=== PATIENT | female | born 1960 | race Asian ===

== ENCOUNTER 2016-11-04 14:15 | Outpatient (CLI) | payer OTHER | END 2016-11-04 14:16 | disposition home or self-care (01) | DX: M85.89 Other specified disorders of bone density and structure, multiple sites (principal); Z78.0 Asymptomatic menopausal state ==

== ENCOUNTER 2017-12-14 14:53 | Outpatient (CLI) | payer OTHER ==
--- NOTE | 2017-12-15 13:13 | Ultrasound Report ---
PELVIC ULTRASOUND: 12/14/2017 CLINICAL INDICATION: Pain. TECHNIQUE: Transabdominal pelvic ultrasound performed for global evaluation. Transvaginal pelvic ultrasound performed for detailed evaluation. Real-time scanning performed and static images obtained. FINDINGS: The uterus is anteverted, measuring 5.5 x 4.3 x 3.3 cm. The endometrium appears thickened for a postmenopausal patient, measuring 1.5 cm on transvaginal scanning, and fluid is noted in the endometrial canal. No focal myometrial lesion is appreciated. The ovaries are unremarkable, with the right measuring 2.0 x 1.2 x 1.1 cm, and the left measuring 2.1 x 1.8 x 1.1 cm. No free fluid is present. IMPRESSION: THICKENED ENDOMETRIUM FOR A POSTMENOPAUSAL PATIENT, WITH A SMALL AMOUNT OF FLUID IN THE ENDOMETRIAL CANAL. CORRELATION WITH POSTMENOPAUSAL BLEEDING IS RECOMMENDED, AND CONSIDER ENDOMETRIAL BIOPSY. TD: 12/15/2017 13:12
== END 2017-12-14 14:54 | disposition home or self-care (01) ==
LOC: DI 14:53
PROVIDERS: ATTEND Physician Assistant Medical
DX: R93.8 Abnormal findings on diagnostic imaging of other specified body structures (principal)
CPT/HCPCS: 76830; 76856

== ENCOUNTER 2017-12-14 14:54 | Outpatient (CLI) | payer OTHER ==
--- NOTE | 2017-12-15 17:57 | Mammography Report ---
DIGITAL SCREENING MAMMOGRAM: 12/14/2017 CLINICAL INDICATION: A 57-year-old with family history of breast cancer, history of benign left breast biopsy for screening. COMPARISON: 05/2016, 02/2016, 08/2015, 01/2015, 12/2014, 11/2013, 07/2012, 04/2011, 02/2010. FINDINGS: The breasts again demonstrate heterogeneously dense fibroglandular parenchyma bilaterally. Coarse and punctate, typically benign calcifications are present. Biopsy marker in the left upper central breast is stable. No suspicious masses, clustered microcalcifications, or regions of architectural distortion are identified. IMPRESSION: BENIGN FINDINGS. RECOMMENDATION: ROUTINE ANNUAL SCREENING UNLESS OTHERWISE CLINICALLY INDICATED. BIRADS category 2, benign findings. STANDARD QUALIFYING STATEMENTS 1. This examination was reviewed with the aid of Computed-Aided Detection (CAD). 2. A negative or benign imaging report should not delay biopsy if clinically suspicious findings are present. Consider surgical consultation if warranted. More than 5% of cancers are not identified by imaging. 3. Dense breasts may obscure an underlying neoplasm. TD: 12/15/2017 17:57
== END 2017-12-14 14:55 | disposition home or self-care (01) ==
LOC: DI 14:54
PROVIDERS: ATTEND Physician Assistant Medical
DX: Z12.31 Encounter for screening mammogram for malignant neoplasm of breast (principal); Z80.3 Family history of malignant neoplasm of breast
CPT/HCPCS: 77067

== ENCOUNTER 2018-03-10 08:29 | Outpatient (CLI) | payer OTHER ==
--- NOTE | 2018-03-10 12:54 | Ultrasound Report ---
PELVIC ULTRASOUND: 03/10/2018 CLINICAL INDICATION: Followup endometrial hyperplasia. COMPARISON: 12/14/2017. TECHNIQUE: Transabdominal pelvic ultrasound performed for global evaluation. Transvaginal pelvic ultrasound performed for detailed evaluation. Real-time scanning performed and static images obtained. FINDINGS: The uterus is anteverted, measuring 6.0 x 4.0 x 2.9 cm. The endometrium now measures 4 mm. A 2.2 x 2.1 x 1.8 cm posterior submucosal leiomyoma is now seen. The ovaries appear unremarkable, with the right measuring 2.0 x 1.7 x 1.0 cm and the left measuring 2.3 x 1.6 x 1.1 cm. No free fluid is present. IMPRESSION: 2.2 CM POSTERIOR SUBMUCOSAL LEIOMYOMA. RESOLUTION OF PREVIOUSLY SEEN ENDOMETRIAL PROMINENCE. TD: 03/10/2018 12:43
== END 2018-03-10 08:30 | disposition home or self-care (01) ==
LOC: DI 08:29
PROVIDERS: ATTEND Registered Nurse
DX: N85.00 Endometrial hyperplasia, unspecified (principal); D25.0 Submucous leiomyoma of uterus
CPT/HCPCS: 76830; 76856

== ENCOUNTER 2019-01-04 08:07 | Outpatient (CLI) | payer OTHER ==
[2019-01-04 12:43] LABS: ALBUMIN 4.1 g/dL (3.2-5.5); ALBUMIN/GLOBULIN RATIO 1.4 (1.0-2.2); ALKALINE PHOSPHATASE 69 IU/L (42-121); ALT ALANINE AMINOTRANSFERASE 18 IU/L (10-60); AST ASPARTATE AMINOTRANSFERASE 21 IU/L (10-42); BILIRUBIN,TOTAL 1.2 mg/dL (0.2-1.0); BUN - BLOOD UREA NITROGEN 18 mg/dL (6-20); CALCIUM 9.2 mg/dL (8.5-10.3); CARBON DIOXIDE - CO2 27 mmol/L (21-32); CHLORIDE 103 mmol/L (101-111); CHOL/HDL RATIO 2.4 (<4.4); CHOLESTEROL 204 mg/dL; CREATININE 0.6 mg/dL (0.4-1.0); GFR - MDRD 102 (>89); GLUCOSE 115 mg/dL (70-100); HDL CHOLESTEROL 84 mg/dL; LDL CHOLESTEROL,CALCULATED 105 mg/dL; LDL/HDL RATIO 1.3 (<4.4); SODIUM 137 mmol/L (135-145); TOTAL PROTEIN 7.1 g/dL (6.7-8.2); VLDL CHOLESTEROL 15 mg/dL
[2019-01-04 12:49] LABS: BASOPHILS % (AUTO) 0.9 %; EOSINOPHILS # (AUTO) 0.1 10^3/uL (0.0-0.7); EOSINOPHILS % (AUTO) 2.4 %; HGB - HEMOGLOBIN 13.5 g/dL (12.0-16.0); LYMPHOCYTES # (AUTO) 1.5 10^3/uL (1.5-3.5); LYMPHOCYTES % (AUTO) 34.7 %; MEAN CORPUSCULAR HEMOGLOBIN 29.5 pg (27.0-31.0); MEAN CORPUSCULAR HGB CONC 33.6 g/dL (32.0-36.0); MEAN CORPUSCULAR VOLUME 87.8 fL (81.0-99.0); MEAN PLATELET VOLUME 7.5 fL (7.9-10.8); MONOCYTES # (AUTO) 0.4 10^3/uL (0.0-1.0); MONOCYTES % (AUTO) 10.3 %; NEUTROPHILS # (AUTO) 2.3 10^3/uL (1.5-6.6); NEUTROPHILS % (AUTO) 51.7 %; PLT - PLATELET COUNT 266 10^3/uL (130-450); RED BLOOD COUNT 4.59 10^6/uL (4.20-5.40); RED CELL DISTRIBUTION WIDTH 13.5 % (12.0-15.0); WHITE BLOOD COUNT 4.4 x10^3/uL (4.8-10.8)
== END 2019-01-04 23:59 | disposition home or self-care (01) ==
LOC: LAB.WCP 08:07
PROVIDERS: ATTEND Physician Assistant Medical
DX: Z00.00 Encounter for general adult medical examination without abnormal findings (principal); R73.9 Hyperglycemia, unspecified; E78.5 Hyperlipidemia, unspecified; M81.0 Age-related osteoporosis without current pathological fracture
CPT/HCPCS: 36415; 80053; 80061; 83721; 84443; 85025

== ENCOUNTER 2019-01-19 16:41 | Outpatient (CLI) | payer OTHER ==
--- NOTE | 2019-01-20 09:11 | Mammography Report ---
Reason: Annual Screening Procedure Date: 01/19/2019 Accession Number: [id number] / [id number] Procedure: HORTENCIA - Screening Mammo w/Timur CPT Code: FULL RESULT: EXAM: Screening Mammo w/Timur DATE: 01/19/2019 5:22 PM CLINICAL HISTORY: Routine screening. No reported personal history of breast cancer. Family history breast cancer mother at age 70. TECHNIQUE: (B) - Bilateral Bilateral CC and MLO views were obtained. COMPARISON: 12/14/2017 through 01/15/2015 PARENCHYMAL PATTERN: (D) - The breasts demonstrate heterogeneously dense fibroglandular parenchyma bilaterally. FINDINGS: Bilateral breasts: There are no suspicious masses, calcifications, or areas of distortion. Stable biopsy marker in the 12:00 left breast. IMPRESSION: Benign findings. BI-RADS category 2 RECOMMENDATION: (ANNUAL) - Recommend routine annual screening mammography. BI-RADS CATEGORY: (2) - Benign Findings STANDARD QUALIFYING STATEMENTS: 1. This examination was not reviewed with the aid of Computer-Aided Detection (CAD). 2. A negative or benign imaging report should not preclude biopsy if clinically suspicious findings are present. 3. Dense breasts may obscure an underlying neoplasm. 4. This examination was reviewed with the aid of 3D breast imaging (tomosynthesis).
== END 2019-01-19 16:42 | disposition home or self-care (01) ==
LOC: DI 16:41
DX: Z12.31 Encounter for screening mammogram for malignant neoplasm of breast (principal); Z80.3 Family history of malignant neoplasm of breast
CPT/HCPCS: 77063; 77067

== ENCOUNTER 2019-02-22 09:00 | Outpatient (CLI) | payer OTHER ==
--- NOTE | 2019-02-23 08:37 | DEXA Report ---
Reason: OSTEOPOROSIS Procedure Date: 02/22/2019 Accession Number: [id number] / [id number] Procedure: DEX - Dexa Spine and/or Hip CPT Code: FULL RESULT: EXAM: Dexa Spine and/or Hip DATE: 02/22/2019 9:18 AM CLINICAL HISTORY: OSTEOPOROSIS TECHNIQUE: Dual energy x-ray absorptiometry (DXA) was performed on a [employer] System. Regions measured are the AP Spine, femoral neck, and if needed forearm. COMPARISON: 11/04/2016. In accordance with the International Society for Clinical Densitometry (ISCD) guidelines, data from previous exams may be reanalyzed using current recommendations and techniques. This is done to allow a more accurate basis for comparison with the current study. FINDINGS: The data for the lumbar spine is as follows: BMD (g/cm/cm) T-SCORE Z-SCORE REGION L1 0.909 -1.8 -0.4 L2 0.943 -2.1 -0.7 L3 1.103 -0.8 0.6 L4 1.130 -0.6 0.9 TOTAL 1.039 -1.2 0.3 NOTE: All evaluable vertebrae are used for classification The data for the hip is as follows: BMD (g/cm/cm) T-SCORE Z-SCORE REGION Neck 0.717 -2.3 -0.9 TOTAL 0.850 -1.2 -0.2 NOTE: The femoral neck or total proximal femur, whichever is lowest, is used for classification. DXA RESULTS SUMMARY: Spine SCAN DATE [age]GE BMD CHANGE VS CHANGE VS PREVIOUS PREVIOUS % 1/22/2019 [age] 1.039 0.074* 7.7* 11/04/2016 56.2 0[age]965 * Denotes significant change at the 95% confidence level. Denotes dissimilar scan types or analysis methods. DXA RESULTS SUMMARY: Hip SCAN DATE AGE BMD CHANGE VS CHANGE VS PREVIOUS PREVIOUS % 02[age]22/2019 60.5 0.850 -0.004 -0.5 11/04/2016 56.2 0.854 * Denotes significant change at the 95% confidence level. Denotes dissimilar scan types or analysis methods. IMPRESSION: THE WHO CLASSIFICATION BASED ON THE INTERNATIONAL REFERENCE STANDARD IS OSTEOPENIA. THE FRACTURE RISK IS INCREASED. RECOMMENDATION: Patients with diagnosis of osteoporosis or osteopenia should have regular bone mineral density assessment. For those eligible for Medicare, routine testing is allowed once every 2 years. Testing frequency can be increased for patients who have rapidly progressing disease or for those who are receiving medical therapy to restore bone mass. COMMENT: World Health Organization (WHO) definitions for osteoporosis and osteopenia: NORMAL BMD: T-score at -1.0 or higher, fracture risk is low OSTEOPENIA BMD: T-score between -1.0 and -2.5, fracture risk is increased. OSTEOPOROSIS BMD: T-score at -2.5 or lower, fracture risk is high. National Osteoporosis Foundation recommends: 1. Obtain adequate dietary calcium (at least 1200 mg per day) and vitamin D (400-800 international units per day). 2. Participate, as appropriate, in regular weightbearing and muscle-strengthening exercise. 3. Avoid tobacco use and reduce alcohol and caffeine intake. 4. For more detailed information see the website at www.NOF.org.
== END 2019-02-22 09:01 | disposition home or self-care (01) ==
LOC: DI 09:00
PROVIDERS: ATTEND Physician Assistant Medical
DX: M85.89 Other specified disorders of bone density and structure, multiple sites (principal)
CPT/HCPCS: 77080

== ENCOUNTER 2020-04-23 15:05 | Outpatient (CLI) | payer OTHER ==
--- NOTE | 2020-04-26 08:54 | Mammography Report ---
BILATERAL DIGITAL SCREENING MAMMOGRAM 3D/2D: 04/23/2020 CLINICAL: Routine screening. Comparison is made to exams dated: 01/19/2019 mammogram and 12/14/2017 mammogram - [facility]. The tissue of both breasts is heterogeneously dense. This may lower the sensitivity of tali mography. There are benign calcifications in the right breast. There also is a biopsy clip in the left breast. No significant masses, calcifications, or other findings are seen in either breast. There has been no significant interval change. IMPRESSION: There is no mammographic evidence of malignancy. A 1 year screening mammogram is recommended. This exam was interpreted at Station ID: [id number]. NOTE: For mammograms, a report in lay terms will be sent to the patient. Approximately 15% of breast malignancies will not be visualized mammographically. In the management of a palpable breast mass, a negative mammogram must not discourage biopsy of a clinically suspicious lesion. Electronically Signed By: Jose Roberto Rocha M.D. aty/luly:04/25/2020 09:49:30 ACR BI-RADS Category 2: Benign Finding(s) 3342F PARENCHYMAL PATTERN: (D) - The breast(s) demonstrate(s) heterogeneously dense fibroglandular parenchy ma. BI-RADS CATEGORY: (2) - 2 RECOMMENDATION: (ANNUAL) - Recommend routine annual screening mammography. [id number] 1 year screening LATERALITY: (B)
== END 2020-04-23 15:06 | disposition home or self-care (01) ==
LOC: DI 15:05
DX: Z12.31 Encounter for screening mammogram for malignant neoplasm of breast (principal)
CPT/HCPCS: 77063; 77067

== ENCOUNTER 2021-05-22 12:32 | Outpatient (CLI) | payer OTHER ==
--- NOTE | 2021-05-22 16:21 | DEXA Report ---
PROCEDURE: Dexa Spine and/or Hip INDICATIONS: POST MENOPAUSAL TECHNIQUE: Dual energy x-ray absorptiometry (DXA) was performed on a [employer] System. Regions measur ed are the AP Spine, femoral neck, and if needed forearm. COMPARISON: 02/22/2019 and 11/04/2016. FINDINGS: Lumbar Spine: Bone Mineral Density 1.089 g/cm/cm,T score -0.9, normal Left Hip: Bone Mineral Density 0.848 g/cm/cm,T score -1.3, osteopenia Left Femoral Neck: Bone Mineral Density 0.77 g/cm/cm, T score -1.8, osteopenia (T score greater or equal to -1.0: NORMAL) (T score from -1.1 to -2.4: OSTEOPENIA) (T score less than or equal to -2.5 to: OSTEOPOROSIS) Impression: Osteopenia. Bone mineral density is unchanged compared to prior examination obtained 2018. Patients with diagnosis of osteoporosis or osteopenia should have regular bone mineral density assess ment. For those eligible for Medicare, routine testing is allowed once every 2 years. Testing frequ ency can be increased for patients who have rapidly progressing disease or for those who are receivin g medical therapy to restore bone mass. Reviewed by: Omayra Cox MD, PhD on 05/22/2021 4:20 PM PDT Approved by: Omayra Cox MD, PhD on 05/22/2021 4:20 PM PDT Station ID: [id number]
== END 2021-05-22 12:33 | disposition home or self-care (01) ==
LOC: DI 12:32
PROVIDERS: ATTEND Physician Assistant Medical
DX: Z78.0 Asymptomatic menopausal state (principal); M85.89 Other specified disorders of bone density and structure, multiple sites

== ENCOUNTER 2021-05-22 12:35 | Outpatient (CLI) | payer OTHER ==
--- NOTE | 2021-05-23 12:50 | Mammography Report ---
BILATERAL DIGITAL SCREENING MAMMOGRAM 3D/2D: 05/22/2021 CLINICAL: Routine screening. Comparison is made to exams dated: 04/23/2020 mammogram, 01/19/2019 mammogram, 12/14/2017 mammogram, 06/13 ultrasound, 06/10/2016 mammogram, and 03/13/2016 mammogram - [facility]. The t issue of both breasts is extremely dense, which lowers the sensitivity of mammography. There is a biopsy site marker on the left breast. There are benign grouped calcifications in the rig ht breast that are not significantly changed. There is a possible 0.6 cm oval asymmetry in the left breast middle depth inferior region seen on the mediolateral oblique view only. This is more prominent. No other significant masses, calcifications, or other findings are seen in either breast. IMPRESSION: INCOMPLETE: NEEDS ADDITIONAL IMAGING EVALUATION The possible 0.6 cm oval asymmetry in the left breast is indeterminate. Additional views with possib le ultrasound are recommended. This exam was interpreted at Station ID: [id number]. NOTE: For mammograms, a report in lay terms will be sent to the patient. Approximately 15% of breast malignancies will not be visualized mammographically. In the management of a palpable breast mass, a negative mammogram must not discourage biopsy of a clinically suspicious lesion. Electronically Signed By: Jose Roberto Rocha M.D. aty/:05/22/2021 17:10:03 ACR BI-RADS Category 0: Incomplete 3340F PARENCHYMAL PATTERN: (VD) - The breast(s) demonstrate(s) extremely dense parenchyma, limiting the sen sitivity of mammography. BI-RADS CATEGORY: (0) - 0 Mammo and [place] [id number] Immediate follow-up LATERALITY: (L)
== END 2021-05-22 12:36 | disposition home or self-care (01) ==
LOC: DI 12:35
DX: Z12.31 Encounter for screening mammogram for malignant neoplasm of breast (principal); N64.89 Other specified disorders of breast

== ENCOUNTER 2021-06-06 10:47 | Outpatient (CLI) | payer OTHER ==
--- NOTE | 2021-06-07 13:12 | Mammography Report ---
UNILATERAL LEFT DIGITAL DIAGNOSTIC MAMMOGRAM 3D/2D: 06/06/2021 CLINICAL: Patient returns today to evaluate an asymmetry in the left breast. Comparison is made to exams dated: 05/22/2021 mammogram, 04/23/2020 mammogram, 01/19/2019 mammogram, 2017 mammogram, 06/13/2016 ultrasound, and 06/10/2016 mammogram - . The ti ssue of left breast is extremely dense, which lowers the sensitivity of mammography. The oval equal density asymmetry with indistinct and circumscribed margins in the left breast middle depth inferior region seen on the mediolateral oblique view only is not seen on additional views. No other significant masses or calcifications are seen in the breast. IMPRESSION: INCOMPLETE: NEEDS ADDITIONAL IMAGING EVALUATION The oval equal density asymmetry in the left breast is not visualized on additional views. An ultraso und is recommended for confirmation. Ultrasound will be performed immediately following the current exam. This exam was interpreted at Station ID: [id number]. NOTE: For mammograms, a report in lay terms will be sent to the patient. Approximately 15% of breast malignancies will not be visualized mammographically. In the management of a palpable breast mass, a negative mammogram must not discourage biopsy of a clinically suspicious lesion. Electronically Signed By: Vasquez Joe M.D. ddp/:06/06/2021 11:46:59 ACR BI-RADS Category 0: Incomplete 3340F PARENCHYMAL PATTERN: (VD) - The breast(s) demonstrate(s) extremely dense parenchyma, limiting the sen sitivity of mammography. BI-RADS CATEGORY: (0) - 0 Ultrasound [id number] Immediate follow-up LATERALITY: (B)
--- NOTE | 2021-06-07 13:12 | Ultrasound Report ---
LIMITED ULTRASOUND OF LEFT BREAST: 06/06/2021 CLINICAL: Patient returns today to evaluate a focal asymmetry in the left breast. Comparison is made to exams dated: 06/06/2021 mammogram, 05/22/2021 mammogram, 04/23/2020 mammogram, 2018 mammogram, 12/14/2017 mammogram, and 06/13/2016 ultrasound - [facility]. Real-time ultrasound of the left breast 8-9 o'clock region was performed on the areas of interest. Ramirez scale images of the real-time examination were reviewed. No discrete cystic or solid mass lesion identified in the area of mammographic abnormality. IMPRESSION: NEGATIVE There is no sonographic evidence of malignancy. There are no abnormalities seen in the left breast to correspond with the mammography finding at 8 or 9 o'clock or central to the nipple. Mammographic findings likely represented superimposition of miguelito ast tissue. A 1 year screening mammogram is recommended. This exam was interpreted at Station ID: [id number]. Electronically Signed By: Vasquez Joe M.D. ddp/:06/06/2021 11:48:26 Ultrasound BI-RADS: 1 Negative BI-RADS CATEGORY: (1) - 1 RECOMMENDATION: (ANNUAL) - Recommend routine annual screening mammography. [id number] 1 year screening LATERALITY: (B)
== END 2021-06-06 10:48 | disposition home or self-care (01) ==
LOC: DI 10:47
PROVIDERS: ATTEND Physician Assistant Medical
DX: R92.8 Other abnormal and inconclusive findings on diagnostic imaging of breast (principal)

== ENCOUNTER 2021-06-27 08:00 | Outpatient (CLI) | payer OTHER ==
[2021-06-27 12:09] LABS: BASOPHILS % (AUTO) 0.7 %; EOSINOPHILS # (AUTO) 0.1 10^3/uL (0.0-0.7); EOSINOPHILS % (AUTO) 2.4 %; HCT - HEMATOCRIT 41.5 % (37.0-47.0); HGB - HEMOGLOBIN 13.3 g/dL (12.0-16.0); LYMPHOCYTES # (AUTO) 1.8 10^3/uL (1.5-3.5); LYMPHOCYTES % (AUTO) 41.7 %; MEAN CORPUSCULAR HEMOGLOBIN 28.9 pg (27.0-31.0); MEAN PLATELET VOLUME 9.7 fL (7.9-10.8); MONOCYTES # (AUTO) 0.4 10^3/uL (0.0-1.0); MONOCYTES % (AUTO) 8.7 %; NEUTROPHILS % (AUTO) 46.3 %; PLT - PLATELET COUNT 255 10^3/uL (130-450); RED BLOOD COUNT 4.61 10^6/uL (4.20-5.40); RED CELL DISTRIBUTION WIDTH 13.7 % (12.0-15.0); WHITE BLOOD COUNT 4.2 x10^3/uL (4.8-10.8)
[2021-06-27 12:38] LABS: ALBUMIN 4.1 g/dL (3.2-5.5); ALBUMIN/GLOBULIN RATIO 1.2 (1.0-2.2); ALKALINE PHOSPHATASE 71 IU/L (42-121); ALT ALANINE AMINOTRANSFERASE 21 IU/L (10-60); AST ASPARTATE AMINOTRANSFERASE 21 IU/L (10-42); BILIRUBIN,TOTAL 0.8 mg/dL (0.2-1.0); BUN - BLOOD UREA NITROGEN 19 mg/dL (6-20); CALCIUM 9.6 mg/dL (8.5-10.3); CARBON DIOXIDE - CO2 26 mmol/L (21-32); CHLORIDE 106 mmol/L (101-111); CHOL/HDL RATIO 2.8 (<4.4); CHOLESTEROL 242 mg/dL; CREATININE 0.6 mg/dL (0.4-1.0); GFR - MDRD 101 (>89); GLUCOSE 119 mg/dL (70-100); HDL CHOLESTEROL 85 mg/dL; LDL CHOLESTEROL,CALCULATED 142 mg/dL; LDL/HDL RATIO 1.7 (<4.4); POTASSIUM 4.2 mmol/L (3.5-5.0); SODIUM 141 mmol/L (135-145); TOTAL PROTEIN 7.4 g/dL (6.7-8.2); TRIGLYCERIDES 76 mg/dL; VLDL CHOLESTEROL 15 mg/dL
[2021-06-27 12:42] LABS: THYROID STIMULATING HORMONE 1.07 uIU/mL (0.34-5.60)
[2021-06-27 12:44] LABS: ESTIMATED AVERAGE GLUCOSE 120 mg/dL (70-100); HEMOGLOBIN A1c% 5.8 % (4.27-6.07)
== END 2021-06-27 23:59 | disposition home or self-care (01) ==
LOC: LAB.WCP 08:00
PROVIDERS: ATTEND Physician Assistant Medical
DX: Z00.00 Encounter for general adult medical examination without abnormal findings (principal); R73.9 Hyperglycemia, unspecified; E78.5 Hyperlipidemia, unspecified
CPT/HCPCS: 36415; 80053; 80061; 83036; 83721; 84443; 85025

== ENCOUNTER 2022-11-10 13:56 | Outpatient (CLI) | payer OTHER ==
--- NOTE | 2022-11-11 15:38 | Mammography Report ---
BILATERAL DIGITAL SCREENING MAMMOGRAM 3D/2D WITH EXAGGERATED CC: 11/10/2022 CLINICAL: Routine screening. Family history of breast cancer. Comparison is made to exams dated: 06/06/2021 mammogram, 05/22/2021 mammogram, 04/23/2020 mammogram, 2018 mammogram, 12/14/2017 mammogram, and 06/10/2016 mammogram - [facility]. Both breasts are heterogeneously dense, which may obscure small masses (category c / 51-75% glandular tissue). There are benign calcifications in the right breast. There also is a biopsy clip in the left breast. No significant masses, calcifications, or other findings are seen in either breast. There has been no significant interval change. IMPRESSION: BENIGN There is no mammographic evidence of malignancy. A 1 year screening mammogram is recommended. Based on Tyrer-Cuzick model (a risk assessment model), the patient's lifetime risk is 20.5% and her 1 0 year risk is 9.9%. If a patient has an elevated risk, a more comprehensive evaluation should be con sidered and/or a referral to a genetic counselor. The [place] [employer], [place] [employer], and NCCN Guidelines advise the consideration of Breast MRI as an adjunct to screening mammog sam in patients whose "Lifetime risk to develop breast cancer" is 20% or higher. This exam was interpreted at Station ID: [id number]. NOTE: For mammograms, a report in lay terms will be sent to the patient. Approximately 15% of breast malignancies will not be visualized mammographically. In the management of a palpable breast mass, a negative mammogram must not discourage biopsy of a clinically suspicious lesion. Electronically Signed By: Jose Roberto rondon/luly:11/10/2022 17:25:23 ACR BI-RADS Category 2: Benign Finding(s) 3342F PARENCHYMAL PATTERN: (D) - The breast(s) demonstrate(s) heterogeneously dense fibroglandular parenchy ma. BI-RADS CATEGORY: (2) - 2 RECOMMENDATION: (ANNUAL) - Recommend routine annual screening mammography. [id number] 1 year screening LATERALITY: (B)
== END 2022-11-10 13:57 | disposition home or self-care (01) ==
LOC: DI 13:56
DX: Z12.31 Encounter for screening mammogram for malignant neoplasm of breast (principal); Z80.3 Family history of malignant neoplasm of breast

== ENCOUNTER 2022-11-27 07:52 | Outpatient (CLI) | payer OTHER ==
[2022-11-27 11:46] LABS: EOSINOPHILS # (AUTO) 0.1 10^3/uL (0.0-0.7); HCT - HEMATOCRIT 39.2 % (37.0-47.0); HGB - HEMOGLOBIN 12.7 g/dL (12.0-16.0); LYMPHOCYTES # (AUTO) 1.8 10^3/uL (1.5-3.5); LYMPHOCYTES % (AUTO) 44.1 %; MEAN CORPUSCULAR HEMOGLOBIN 28.7 pg (27.0-31.0); MEAN CORPUSCULAR HGB CONC 32.4 g/dL (32.0-36.0); MEAN CORPUSCULAR VOLUME 88.5 fL (81.0-99.0); MEAN PLATELET VOLUME 9.4 fL (7.9-10.8); MONOCYTES # (AUTO) 0.4 10^3/uL (0.0-1.0); MONOCYTES % (AUTO) 9.2 %; NEUTROPHILS # (AUTO) 1.7 10^3/uL (1.5-6.6); NEUTROPHILS % (AUTO) 42.2 %; PLT - PLATELET COUNT 256 10^3/uL (130-450); RED BLOOD COUNT 4.43 10^6/uL (4.20-5.40); RED CELL DISTRIBUTION WIDTH 13.2 % (12.0-15.0)
[2022-11-27 12:34] LABS: THYROID STIMULATING HORMONE 1.37 uIU/mL (0.34-5.60)
[2022-11-27 12:39] LABS: ALBUMIN 3.7 g/dL (3.2-5.5); ALBUMIN/GLOBULIN RATIO 1.1 (1.0-2.2); ALKALINE PHOSPHATASE 77 IU/L (42-121); ALT ALANINE AMINOTRANSFERASE 27 IU/L (10-60); AST ASPARTATE AMINOTRANSFERASE 24 IU/L (10-42); BILIRUBIN,TOTAL 0.8 mg/dL (0.2-1.0); BUN - BLOOD UREA NITROGEN 16 mg/dL (6-20); CALCIUM 9.5 mg/dL (8.5-10.3); CARBON DIOXIDE - CO2 29 mmol/L (21-32); CHLORIDE 106 mmol/L (101-111); CHOL/HDL RATIO 2.8 (<4.4); CHOLESTEROL 221 mg/dL; CREATININE 0.5 mg/dL (0.4-1.0); GFR - MDRD 124 (>89); GLUCOSE 119 mg/dL (70-100); HDL CHOLESTEROL 80 mg/dL; LDL CHOLESTEROL,CALCULATED 126 mg/dL; LDL/HDL RATIO 1.6 (<4.4); POTASSIUM 4.2 mmol/L (3.5-5.0); SODIUM 142 mmol/L (135-145); TRIGLYCERIDES 74 mg/dL; VLDL CHOLESTEROL 15 mg/dL
[2022-11-27 13:22] LABS: ESTIMATED AVERAGE GLUCOSE 126 mg/dL (70-100)
== END 2022-11-27 07:53 | disposition home or self-care (01) ==
LOC: LAB.N 07:52
PROVIDERS: ATTEND Family Medicine
DX: E78.5 Hyperlipidemia, unspecified (principal); R73.9 Hyperglycemia, unspecified; F32.A Depression, unspecified; M81.0 Age-related osteoporosis without current pathological fracture
CPT/HCPCS: 36415; 80053; 80061; 83036; 83721; 84443; 85025

== ENCOUNTER 2023-07-23 11:26 | Outpatient (CLI) | payer OTHER ==
[2023-07-23 18:03] LABS: ALBUMIN 4.3 g/dL (3.2-5.5); ALBUMIN/GLOBULIN RATIO 1.7 (1.0-2.2); BILIRUBIN,TOTAL 0.7 mg/dL (0.2-1.0); CALCIUM 10.1 mg/dL (8.5-10.3); CREATININE 0.5 mg/dL (0.6-1.3); POTASSIUM 4.1 mmol/L (3.5-4.5); TOTAL PROTEIN 6.9 g/dL (6.4-8.9)
[2023-07-23 19:22] LABS: ESTIMATED AVERAGE GLUCOSE 117 mg/dL (70-100); HEMOGLOBIN A1c% 5.7 % (4.27-6.07)
== END 2023-07-23 11:27 | disposition home or self-care (01) ==
LOC: LAB.N 11:26
PROVIDERS: ATTEND Physician Assistant Medical
DX: R73.9 Hyperglycemia, unspecified (principal)
CPT/HCPCS: 36415; 80053; 83036

== ENCOUNTER 2023-10-13 08:00 | Outpatient (CLI) | payer OTHER ==
--- NOTE | 2023-10-14 14:22 | XRAY Report ---
PROCEDURE: Foot 3 View RT INDICATIONS: RIGHT FOOT CYST TECHNIQUE: 3 views of the foot were acquired. COMPARISON: None. FINDINGS: Bones: No fractures or dislocations. Moderate hallux valgus evaluation of the first MTP with medial bunion formation. No suspicious bony lesions. Soft tissues: No suspicious soft tissue calcifications or masses. IMPRESSION: 1.No acute bony abnormality. 2.No acute abnormalities are seen within the soft tissues near the marker. However, radiographs are n ot sensitive for the evaluation of soft tissue abnormalities, consider ultrasound or MRI for further evaluation. Reviewed by: Glen Gonzalez MD on 10/14/2023 2:20 PM PST Approved by: Glen Gonzalez MD on 10/14/2023 2:20 PM PST Station ID: [id number]
== END 2023-10-13 23:59 | disposition home or self-care (01) ==
LOC: DI.WOS 08:00
PROVIDERS: ATTEND Physician Assistant Surgical
DX: M67.471 Ganglion, right ankle and foot (principal)

== ENCOUNTER 2023-10-24 07:17 | Outpatient (CLI) | payer OTHER ==
--- NOTE | 2023-10-26 02:38 | Ultrasound Report ---
PROCEDURE: Extremity Soft Tissue Limited INDICATIONS: MASS OF RIGHT FOOT TECHNIQUE: Real-time scanning was performed of the plantar aspect of the right foot, with image docu mentation. COMPARISON: None. FINDINGS: An area of clinical concern at the plantar aspect of the right foot near the instep, there is a hypoechoic oval mass with circumscribed margins measuring 1.0 x 1.0 x 0.3 cm in the subcutaneou s tissue. No visible skin tract visualized. IMPRESSION: 1.0 cm hypoechoic oval circumscribed mass within the subcutaneous tissue may represent a skin base cyst versus fluid collection. Reviewed by: Ambika Valdez MD on 10/26/2023 2:37 AM PST Approved by: Ambika Valdez MD on 10/26/2023 2:37 AM PST Station ID: [id number]
== END 2023-10-24 07:18 | disposition home or self-care (01) ==
LOC: DI 07:17
PROVIDERS: ATTEND Physician Assistant Surgical
DX: R22.41 Localized swelling, mass and lump, right lower limb (principal)

== ENCOUNTER 2024-04-06 09:17 | Outpatient (CLI) | payer OTHER ==
--- NOTE | 2024-04-07 10:34 | Mammography Report ---
BILATERAL DIGITAL SCREENING MAMMOGRAM 3D/2D: 04/06/2024 CLINICAL: Routine screening. Comparison is made to exams dated: 11/10/2022 mammogram, 06/06/2021 mammogram, 05/22/2021 mammogram, 04/23 mammogram, 01/19/2019 mammogram, and 12/14/2017 mammogram - [facility]. Both breasts are extremely dense, which lowers the sensitivity of mammography (category d />75% gland ular tissue). There are benign calcifications in the right breast. There also is a biopsy clip in the left breast. No significant masses, calcifications, or other findings are seen in either breast. There has been no significant interval change. IMPRESSION: BENIGN There is no mammographic evidence of malignancy. A 1 year screening mammogram is recommended. Based on Tyrer-Cuzick model (a risk assessment model), the patient's lifetime risk is 28.5% and her 1 0 year risk is 14.6%. If a patient has an elevated risk, a more comprehensive evaluation should be co nsidered and/or a referral to a genetic counselor. The [place] [employer], [place] [employer], and NCCN Guidelines advise the consideration of Breast MRI as an adjunct to screening mammo graphy in patients whose "Lifetime risk to develop breast cancer" is 20% or higher. This exam was interpreted at Station ID: [id number]. NOTE: For mammograms, a report in lay terms will be sent to the patient. Approximately 15% of breast malignancies will not be visualized mammographically. In the management of a palpable breast mass, a negative mammogram must not discourage biopsy of a clinically suspicious lesion. Electronically Signed By: Radha rodriguez/luly:04/06/2024 14:51:53 letter sent: No_Letter ACR BI-RADS Category 2: Benign Finding(s) 3342F PARENCHYMAL PATTERN: (VD) - The breast(s) demonstrate(s) extremely dense parenchyma, limiting the sen sitivity of mammography. BI-RADS CATEGORY: (2) - 2 RECOMMENDATION: (ANNUAL) - Recommend routine annual screening mammography. [id number] 1 year screening LATERALITY: (B)
== END 2024-04-06 09:18 | disposition home or self-care (01) ==
LOC: DI 09:17
DX: Z12.31 Encounter for screening mammogram for malignant neoplasm of breast (principal); R92.30 Dense breasts, unspecified

== ENCOUNTER 2024-04-28 07:41 | Outpatient (CLI) | payer OTHER ==
[2024-04-28 12:21] LABS: BASOPHILS % (AUTO) 1.1 %; EOSINOPHILS # (AUTO) 0.2 10^3/uL (0.0-0.7); HCT - HEMATOCRIT 38.7 % (37.0-47.0); HGB - HEMOGLOBIN 12.4 g/dL (12.0-16.0); LYMPHOCYTES # (AUTO) 1.7 10^3/uL (1.5-3.5); LYMPHOCYTES % (AUTO) 44.3 %; MEAN CORPUSCULAR HEMOGLOBIN 28.8 pg (27.0-31.0); MEAN CORPUSCULAR VOLUME 89.8 fL (81.0-99.0); MEAN PLATELET VOLUME 9.8 fL (7.9-10.8); MONOCYTES # (AUTO) 0.4 10^3/uL (0.0-1.0); MONOCYTES % (AUTO) 9.8 %; NEUTROPHILS # (AUTO) 1.5 10^3/uL (1.5-6.6); NEUTROPHILS % (AUTO) 40.8 %; PLT - PLATELET COUNT 241 10^3/uL (130-450); RED BLOOD COUNT 4.31 10^6/uL (4.20-5.40); RED CELL DISTRIBUTION WIDTH 12.8 % (12.0-15.0); WHITE BLOOD COUNT 3.8 x10^3/uL (4.8-10.8)
[2024-04-28 12:32] LABS: ALBUMIN 4.3 g/dL (3.2-5.5); ALBUMIN/GLOBULIN RATIO 1.6 (1.0-2.2); ALKALINE PHOSPHATASE 71 IU/L (42-121); ALT ALANINE AMINOTRANSFERASE 19 IU/L (10-60); AST ASPARTATE AMINOTRANSFERASE 19 IU/L (10-42); BILIRUBIN,TOTAL 0.5 mg/dL (0.2-1.0); BUN - BLOOD UREA NITROGEN 20 mg/dL (6-20); CALCIUM 9.7 mg/dL (8.5-10.3); CARBON DIOXIDE - CO2 29 mmol/L (21-32); CHLORIDE 107 mmol/L (101-111); CHOL/HDL RATIO 2.6 (<4.4); CHOLESTEROL 221 mg/dL; CREATININE 0.5 mg/dL (0.6-1.3); GFR - MDRD 124 (>89); GLUCOSE 109 mg/dL (74-104); HDL CHOLESTEROL 84 mg/dL; LDL CHOLESTEROL,CALCULATED 128 mg/dL; LDL/HDL RATIO 1.5 (<4.4); POTASSIUM 4.1 mmol/L (3.5-4.5); SODIUM 140 mmol/L (135-145); TRIGLYCERIDES 45 mg/dL; VLDL CHOLESTEROL 9 mg/dL
[2024-04-28 12:33] LABS: ESTIMATED AVERAGE GLUCOSE 114 mg/dL (70-100); HEMOGLOBIN A1c% 5.6 % (4.27-6.07)
[2024-04-28 12:46] LABS: THYROID STIMULATING HORMONE 0.64 uIU/mL (0.34-5.60)
== END 2024-04-28 07:42 | disposition home or self-care (01) ==
LOC: LAB.N 07:41
PROVIDERS: ATTEND Physician Assistant Medical
DX: Z00.00 Encounter for general adult medical examination without abnormal findings (principal); E78.5 Hyperlipidemia, unspecified; R73.9 Hyperglycemia, unspecified
CPT/HCPCS: 36415; 80053; 80061; 83036; 83721; 84443; 85025

== ENCOUNTER 2024-06-15 14:11 | Outpatient (CLI) | payer OTHER ==
--- NOTE | 2024-06-15 16:01 | DEXA Report ---
PROCEDURE: Dexa Spine and/or Hip INDICATIONS: POST MENOPAUSAL TECHNIQUE: Dual energy x-ray absorptiometry (DXA) was performed on a [employer] System. Regions measur ed are the AP Spine, femoral neck, and if needed forearm. COMPARISON: 05/22/2021 FINDINGS: Lumbar Spine: Bone Mineral Density: 1.023 g/cm/cm,T score: -1.3. Osteopenia Left Femoral Neck: Bone Mineral Density: 0.779 g/cm/cm, T score: -1.9. Left Hip: Bone Mineral Density: 0.798 g/cm/cm,T score: -1.7. Osteopenia FRAX risk factors: None given. 10 year risk of major osteoporotic fracture: 5.6% major osteoporotic fracture = hip, clinical vertebral, proximal humerus, distal forearm 10 year risk of hip fracture: 0.8% (T score greater or equal to -1.0: NORMAL) (T score from -1.1 to -2.4: OSTEOPENIA) (T score less than or equal to -2.5 to: OSTEOPOROSIS) Impression: By WHO criteria, this patient has low bone density (osteopenia). Interval statistical decrease in bone mineral density of the lumbar spine. Interval statistical decre ase in bone mineral density of the hip. Patients with diagnosis of osteoporosis or osteopenia should have regular bone mineral density assess ment. For those eligible for Medicare, routine testing is allowed once every 2 years. Testing frequ ency can be increased for patients who have rapidly progressing disease or for those who are receivin g medical therapy to restore bone mass. Reviewed by: Uzair Arellano MD on 06/15/2024 3:59 PM PDT Approved by: Uzair Arellano MD on 06/15/2024 3:59 PM PDT Station ID: [id number]
== END 2024-06-15 14:12 | disposition home or self-care (01) ==
LOC: DI 14:11
PROVIDERS: ATTEND Physician Assistant Medical
DX: M85.89 Other specified disorders of bone density and structure, multiple sites (principal); Z78.0 Asymptomatic menopausal state